=== PATIENT | female | born 1960 | race Caucasian/White ===

== ENCOUNTER 2019-12-09 10:59 | Emergency (ER) | payer MEDICAID, SELFPAY ==
[2019-12-09 11:06] VITALS: BP 119/92; PULSE 110; RESP 17; TEMP 36.8; O2SAT 99; BMI 17.2
[2019-12-09 11:24] VITALS: BP 119/91; PULSE 110; RESP 17; TEMP 36.8; O2SAT 99; BMI 17.0
--- NOTE | 2019-12-09 11:54 | HMH.EDUTC ---
[facility] – [place], [place] Disposition Clinical Impression: Perianal abscess Disposition: Home, Self-Care Condition on Discharge: Good Instructions: Boil Additional Instructions: Follow up with the surgeon if you are not getting better within a 48 to 72 hours. Take the medications as directed. Sit in a bath tub full of warm salt water or do a sitz bath three or four times per day. Follow up with your primary care physician. GO TO THE ER FOR ANY WORSENING SYMPTOMS OR CONCERNS Prescriptions: Mupirocin [Bactroban 2% Ointment 22gm tube] 1 applicatio TP TID 7 Days #1 tube Transmission Status: Received by [id number] Ciprofloxacin HCl [Cipro 500mg Tab] 500 mg PO BID 10 Days #20 tab Transmission Status: Received by [id number] metroNIDAZOLE [metroNIDAZOLE 500mg Tablet] 500 mg PO DAILY 10 Days #20 tab Transmission [facility]: [id number] Referrals: PCP,No [Primary Care Provider] - Tripp Umanzor MD [Staff Physician] - Time of Disposition: 12:29 Medical Decision Making - Medical Records Medical records reviewed: No: I reviewed the patient's medical records. - Jose E Inquiry Pt receiving controlled substance: No Vital Signs: 12/09/19 11:06 12/09/19 11:24 12/09/19 12:29 Temperature 98.2 F 98.2 F 98.2 F Temperature Source Oral Oral Pulse Rate 110 H Pulse Rate [Right] 110 H 110 H Respiratory Rate 17 17 17 Blood Pressure 119/91 H Blood Pressure [Right Arm] 119/92 H 119/91 H Blood Pressure Mean [Right Arm] 101 100 Blood Pressure Source [Right Arm] Automatic Cuff Blood Pressure Position [Right Arm] Sitting 02 Sat by Pulse Oximetry 99 99 Oxygen Delivery Method Room Air Orders (Tests/Meds): ED MEDICATIONS Discontinued Medications Generic Name Dose Route Start Last Admin Trade Name Freq PRN Reason Stop Dose Admin Ceftriaxone Sodium 1 gm 12/09/19 12:21 12/09/19 12:35 Ceftriaxone 1gm Vial IM 12/09/19 12:22 1 gm ONCE ONE Administration Protocol Lidocaine HCl 0 ml 12/09/19 12:21 12/09/19 12:35 Lidocaine 1% 5ml Pf Vial IM 12/09/19 12:22 2.1 ml ONCE ONE Administration [facility] – [place], [place] HPI - General Stated complaint: boil on buttocks Time Seen by Provider: 12/09/19 11:20 Mode of Arrival: Ambulatory Source of Information: Patient Limitations: No Limitations Description of Symptoms (Recalled from Triage Doc. by RN): PATIENT C/O PAINFUL BOIL TO LABIA X 1.5 WEEKS HEENT Symptoms (Recalled from RN notes): No Resp Symptoms (Recalled from RN notes): No Skin Symptoms (Recalled from RN notes): No MS Symptoms (Recalled from RN notes): No Functional Status (Recalled from RN notes): WNL - History of Present Illness Provider Complaint: She c/o having a boil on her bottom for the past 5 days. - Related Data Previous Rx's Medication Instructions Recorded Ciprofloxacin HCl [Cipro 500mg 500 mg PO BID 10 Days #20 tab 12/09/19 Tab] Mupirocin [Bactroban 2% Ointment 1 applicatio TP TID 7 Days #1 tube 12/09/19 22gm tube] metroNIDAZOLE [metroNIDAZOLE 500mg 500 mg PO DAILY 10 Days #20 tab 12/09/19 Tablet] Allergies Allergy/AdvReac Type Severity Reaction Status Date / Time codeine [CODEINE] Allergy Mild Verified 12/09/19 11:28 IV DYE Allergy Mild Uncoded 02/21/17 14:29 - Worker's Comp Is this a Worker's Comp case?: No [facility] History - Hepatitis A Screen Drug use history?: No High risk sexual behaviors?: No History of sexually transmitted infection?: No Currently employed?: No Childcare worker?: No Do you have indoor plumbing?: Yes Do you have electricity?: Yes Attestation statement:: This patient has been screened for Hepatitis A risk factors. I have reviewed the patient's past medical history: Yes - Social History Alcohol Intake: never Occupational Status: other ROS Obtained: Yes All systems reviewed & no additional complaints - Constitutional Constitutional: Denies chills, Denies feve
[2019-12-09 12:29] VITALS: BP 119/91; PULSE 110; RESP 17; TEMP 36.8; O2SAT 99
== END 2019-12-09 12:30 | disposition home or self-care (01) ==
PROVIDERS: Emergency Provider Nurse Practitioner Family
DX: K61.0 Anal abscess (principal); Z88.5 Allergy status to narcotic agent
CPT/HCPCS: 96372; 99201

== ENCOUNTER 2024-06-13 13:48 | Emergency (ER) | payer SELFPAY ==
--- NOTE | 2024-06-13 13:54 | ECG_ITS ---
APPROVED REPORT Exam: Resting ECG HR:93 bpm ECG Measurements Heart Rate 93 AXES CO 129 P 66 QRSd 81 QRS 65 QT 361 T 60 QTc 412 Conclusion SINUS RHYTHM POSSIBLE LEFT ATRIAL ENLARGEMENT [-0.1mV P-WAVE IN V1/V2] POSSIBLE LEFT VENTRICULAR HYPERTROPHY [VOLTAGE CRITERIA PLUS LAE OR QRS WIDENING] NONSPECIFIC ST & T-WAVE ABNORMALITY ABNORMAL ECG Electronically signed by : BREA CABRAL, 06/14/2024 07:37:54
[2024-06-13 13:56] VITALS: BP 134/91; PULSE 90; RESP 24; TEMP 36.7; O2SAT 94; BMI 19.5
--- NOTE | 2024-06-13 14:06 | PC.NURSE ---
Patients FSBS was 133
--- NOTE | 2024-06-13 14:18 | XR_ITS ---
FINAL REPORT CLINICAL HISTORY: syncope COMPARISON: none FINDINGS: No acute pulmonary opacity is present. There is no evidence of effusion or pneumothorax. Mediastinum is unremarkable. Heart size is normal. IMPRESSION: No acute abnormality. Reviewed, Interpreted and Dictated by Rani Doran MD Transcribed by Isabell Camejo Authenticated and . [facility]
--- NOTE | 2024-06-13 14:18 | PC.NURSE ---
patient is very short tempered with staff and refused a flu swab and held up her hands and yelled no
--- NOTE | 2024-06-13 14:19 | HMH.EDGENADL ---
Discharge Plan Disposition Patient Disposition: Home, Self-Care Chief Complaint: Syncope Prescriptions Prescriptions: New doxycycline hyclate 100 mg capsule 100 mg PO BID 5 Days Qty: 10 0RF No Action ciprofloxacin HCl 500 MG tablet 500 mg PO BID 10 Days Qty: 20 0RF metronidazole 500 MG tablet 500 mg PO DAILY 10 Days Qty: 20 0RF mupirocin 22 GM ointment 1 applicatio TP TID 7 Days Qty: 1 0RF Referrals Follow up/Referrals: Provider,Referral, MD [Primary Care Provider] - See instructions Activity Restrictions/Add. Instructions Additional Instructions/Restrictions: Call your family doctor to establish care for this visit to the emergency department and schedule follow-up within 48 hours to ensure improvement. If you have any worsening of your condition or any other concerning signs or symptoms, return to the emergency department or your primary care doctor for further evaluation. While taking doxycycline, limit sunlight exposure. It can cause severe sunburns even if you do not typically get sunburn. Be sure to wear hats, long sleeves, sunscreen if you are out in the sun for prolonged periods of time while taking doxycycline. Clinical Impressions Clinical Impression: Pneumonia, Syncope, Hypokalemia Instructions Patient Instructions: DI for Syncope in Adults (Fainting), DI for Syncope in Children (Fainting) Print Language Print Language: Armenian Discharge ED Provider: Du Knight General Adult HPI <David Taylor MD - Last Filed: 06/13/24 15:43> General Chief complaint: Syncope Stated complaint: Syncopy Time Seen by Provider: 06/13/24 13:55 Mode of Arrival: Ambulatory Source of Information: Patient Description of Symptoms (Recalled from ER Triage Doc. by RN): pt was shopping at [email or web address] a lot and got dizzy and passed out, family caught her and lowered her to the ground, no injury occurred and then patient woke up and puked. pt is alox4 and back to baseline, upon triage pt states she hurts all over like body aches and bad back pain, pt refused a flu swab, and then per family she has not been feeling well for two weeks History of Present Illness HPI narrative: Patient is a 63-year-old female with no pertinent past medical history presents emergency department for evaluation of passing out. Patient has passed out multiple times before but it does not have often with a frequency of less than annually. She feels it coming on when she passes out today she felt as if she was going to pass out and tried to make it to the bathroom but was unsuccessful. Family noticed that she was going down and caught her and lowered her to the floor. No trauma. Rapid return to baseline. She presents here by EMS. No chest pain, no headache reported, no other acute complaints at this time. Please note that above description of symptoms, in this electronic medical record under categorization of recalled from ER triage doctor by RN are reflective of an initial nursing assessment, however, is not reflective of my full history and physical exam that was personally taken and clarified. Consequentially, this preceding description of symptoms, which may include the patient's categorized chief complaint in the EMR, do not reflect my personal clinical impression, and the ultimate description of history of present illness and patient stated complaints should be deferred to this section of the note. Unless stated otherwise or congruent with this section of the note, additional signs, symptoms, or incongruence should be interpreted as inaccurate with my clinical impression. Related Data Previous Rx's ?Medication ?Instructions ?Recorded ciprofloxacin HCl 500 mg tablet 500 mg PO BID 10 days #20 tabs 12/09/19 metronidazole 500 mg tablet 500 mg PO DAILY 10 days #20 tabs 12/09/19 mupirocin 2 % topical ointment 1 applicatio TP TID 7 days #1 tube 12/09/19 doxycycline hyclate 100 mg capsule 100 mg PO BID 5 days #10 caps 06/13/24 Allergies Allergy/AdvReac Type Severity Reaction Status Date / Time codeine (CODEINE) Allergy Mild Verified 12/09/19 11:28 IV DYE Allergy Mild Uncoded 02/21/17 14:29 [facility] <David Taylor MD - Last Filed: 06/13/24 15:43> [facility] Disclaimer: The information contained in this section may have been updated after the patient was seen, as this information can be updated by other users. Social History Smoking Status: Current every day smoker alcohol intake: never current occupational status: other Travel in the last 8 weeks: None Have you lived/traveled outside [place] in past 30 days?: No Contact w/someone who lives/traveled outside US past 30 days?: No Exposure to someone with infectious disease in past 14 days?: No Do you have a fever (greater than 100.4 F or 38 C)?: No Have you tested positive for COVID-19: No Exposed to someone with COVID-19 in past 14 days?: No Do you have a sore throat?: No Do you have a cough?: No Do you have any weakness?: No Do you have any diarrhea?: No Are you experiencing any unusual bleeding?: No Do you have any muscle aches/pain?: No Do you have any abdominal pain?: No Are you experiencing loss of taste or smell?: No <David Taylor MD - Last Filed: 06/13/24 15:43> ROS Obtained: Yes Systems reviewed as appropriate & no additional complaints except as documented Physical Exam <David Taylor MD - Last Filed: 06/13/24 15:43> General General appearance: alert and in no apparent distress Head Head exam: atraumatic and normocephalic Eye Eye exam: Present PERRL and EOMI ENT ENT exam: Present mucous membranes moist Neck Neck exam: Present normal inspection Chest Chest inspection: Present normal inspection and symmetric chest wall rise Respiratory Respiratory exam: Present normal lung sounds bilaterally; Absent respiratory distress Cardiovascular Cardiovascular exam: Present regular rate and normal rhythm Abdominal Exam Abdominal exam: Present soft; Absent tenderness Extremities Exam Extremities exam: Present normal inspection Neurological Exam Neurological exam: Present alert, oriented X3 and CN II-XII intact; Absent motor sensory deficit Psychiatric Psychiatric exam: Present normal affect Skin Skin exam: Present warm and dry Medical Decision Making <David Taylor MD - Last Filed: 06/13/24 15:43> Medical Records Screening: Per USPSTF and CDC recommendations, given the prevalence of disease in our region, it is our hospital?s policy to screen for HIV and viral Hepatitis for all patients aged 18 and over and those with ongoing risk factors. Jose E Inquiry Pt receiving controlled substance: No Vital Signs: 06/13/24 13:56 Temperature 98.0 F Temperature Source Oral Pulse Rate [Left Radial] 90 Respiratory Rate 24 Blood Pressure [Right Arm] 134/91 H Blood Pressure Mean [Right Arm] 105 02 Sat by Pulse Oximetry 94 L Oxygen Delivery Method Room Air Lab Data Lab Results 06/13/24 13:56: WBC 20.8 H*, RBC 4.63, Hgb 13.7, Hct 41.9, MCV 90.5, MCH 29.6, MCHC 32.7, RDW 14.4, Plt Count 356, MPV 10.0, Neut % (Auto) 71.7, Lymph % (Auto) 19.0, [place] % (Auto) 7.3, Eos % (Auto) 0.9, Baso % (Auto) 0.7, Neut # (Auto) 14.9 H, Lymph # (Auto) 3.9, [place] # (Auto) 1.5 H, Eos # (Auto) 0.2, Baso # (Auto) 0.2, Sodium 138, Potassium 3.3 L, Chloride 103, Carbon Dioxide 24, Anion Gap 14.3, BUN 9, Creatinine 0.60, Estimated Creat Clear 46, Estimated GFR 101, Est GFR ( Amer) 123, Glucose 155 H, Calcium 9.3, Magnesium 1.6, Total Bilirubin 0.5, AST 23, ALT 12, Alkaline Phosphatase 112, Total Protein 7.2, Albumin 3.6, Globulin 3.6 H, Albumin/Globulin Ratio 1.0 L 06/13/24 13:56 06/13/24 13:56 Orders (Tests/Meds): ED MEDICATIONS Discontinued Medications Generic Name Dose Route Start Last Admin Trade Name Freq PRN Reason Stop Dose Admin Doxycycline Hyclate 100 mg 06/13/24 15:38 06/13/24 15:41 Doxycycline Hycl 100 Mg Tablet PO 06/13/24 15:39 100 mg ONCE ONE Administration Potassium Chloride 40 meq 06/13/24 15:46 06/13/24 15:53 Potassium Chloride 20meq Tab PO 06/13/24 15:47 40 meq ONCE ONE Administration Prednisone 40 mg 06/13/24 15:37 06/13/24 15:41 Prednisone 20mg Tab PO 06/13/24 15:38 40 mg ONCE ONE Administration ORDERS Category Date Time Status CXR --portable [XR chest portable] Stat Exams 06/13/24 14:18 Completed CBC w/Auto Diff [Complete Blood Count Auto Diff] Stat Lab 06/13/24 13:56 Results CMP [Comprehensive Metabolic Panel] Stat Lab 06/13/24 13:56 Completed MG [Magnesium] Stat Lab 06/13/24 13:56 Completed ECG Data Tracing #1: Independently interpreted by me rate is 93, rhythm is regular, axis is normal, no ST elevation in anatomical contiguous leads, QTc 412, no dagger Q waves in the lateral leads no high degree AV block no delta wave. Medical Decision Narrative: In summary patient is 63-year-old female past medical history described above presents emergency department for evaluation of syncope. Patient is hemodynamically stable nontoxic-appearing upon arrival, afebrile. Patient has a nonfocal neurologic exam. History is consistent with vasovagal syncope, there was prodrome as well. Workup we conducted with hematologic labs chest x-ray EKG. initial hematologic labs reviewed by me leukocytosis of 20.8 of undetermined etiology, mild hypokalemia, no MARIANELA or critical electrolyte abnormality otherwise. Chest x-ray informally interpreted by me, right lower lobe pneumonia which we will start treatment with prednisone and doxycycline. On further questioning patient has had cough, upper respiratory symptoms, back pain from coughing, I considered CT angio of the chest abdomen pelvis but given that she does not have any anterior chest pain or abdominal pain we will not proceed with this given her contrast allergy and I do think it is very unlikely. Repeat evaluation pending at time of transfer of care to the oncoming physician, Dr. Knight. <Du Knight MD - Last Filed: 06/13/24 16:04> Vital Signs: 06/13/24 13:56 Temperature 98.0 F Temperature Source Oral Pulse Rate [Left Radial] 90 Respiratory Rate 24 Blood Pressure [Right Arm] 134/91 H Blood Pressure Mean [Right Arm] 105 02 Sat by Pulse Oximetry 94 L Oxygen Delivery Method Room Air Lab Data Lab Results 06/13/24 13:56: WBC 20.8 H*, RBC 4.63, Hgb 13.7, Hct 41.9, MCV 90.5, MCH 29.6, MCHC 32.7, RDW 14.4, Plt Count 356, MPV 10.0, Neut % (Auto) 71.7, Lymph % (Auto) 19.0, [place] % (Auto) 7.3, Eos % (Auto) 0.9, Baso % (Auto) 0.7, Neut # (Auto) 14.9 H, Lymph # (Auto) 3.9, [place] # (Auto) 1.5 H, Eos # (Auto) 0.2, Baso # (Auto) 0.2, Sodium 138, Potassium 3.3 L, Chloride 103, Carbon Dioxide 24, Anion Gap 14.3, BUN 9, Creatinine 0.60, Estimated Creat Clear 46, Estimated GFR 101, Est GFR ( Amer) 123, Glucose 155 H, Calcium 9.3, Magnesium 1.6, Total Bilirubin 0.5, AST 23, ALT 12, Alkaline Phosphatase 112, Total Protein 7.2, Albumin 3.6, Globulin 3.6 H, Albumin/Globulin Ratio 1.0 L Orders (Tests/Meds): ED MEDICATIONS Discontinued Medications Generic Name Dose Route Start Last Admin Trade Name Freq PRN Reason Stop Dose Admin Doxycycline Hyclate 100 mg 06/13/24 15:38 06/13/24 15:41 Doxycycline Hycl 100 Mg Tablet PO 06/13/24 15:39 100 mg ONCE ONE Administration Potassium Chloride 40 meq 06/13/24 15:46 06/13/24 15:53 Potassium Chloride 20meq Tab PO 06/13/24 15:47 40 meq ONCE ONE Administration Prednisone 40 mg 06/13/24 15:37 06/13/24 15:41 Prednisone 20mg Tab PO 06/13/24 15:38 40 mg ONCE ONE Administration ORDERS Category Date Time Status CXR --portable [XR chest portable] Stat Exams 06/13/24 14:18 Completed CBC w/Auto Diff [Complete Blood Count Auto Diff] Stat Lab 06/13/24 13:56 Results CMP [Comprehensive Metabolic Panel] Stat Lab 06/13/24 13:56 Completed MG [Magnesium] Stat Lab 06/13/24 13:56 Completed Medical Decision Narrative: In summary patient is 63-year-old female past medical history described above presents emergency department for evaluation of syncope. Patient is hemodynamically stable nontoxic-appearing upon arrival, afebrile. Patient has a nonfocal neurologic exam. History is consistent with vasovagal syncope, there was prodrome as well. Workup we conducted with hematologic labs chest x-ray EKG. initial hematologic labs reviewed by me leukocytosis of 20.8 of undetermined etiology, mild hypokalemia, no MARIANELA or critical electrolyte abnormality otherwise. Chest x-ray informally interpreted by me, right lower lobe pneumonia which we will start treatment with prednisone and doxycycline. On further questioning patient has had cough, upper respiratory symptoms, back pain from coughing, I considered CT angio of the chest abdomen pelvis but given that she does not have any anterior chest pain or abdominal pain we will not proceed with this given her contrast allergy and I do think it is very unlikely. Repeat evaluation pending at time of transfer of care to the oncoming physician, Dr. Knight. Eugene: I assumed primary responsibility for this patient after signout from previous physician. I independently interpreted patient's workup, she does have leukocytosis nearly 21,000 with neutrophilia and elevated monocytes. Mild hypokalemia. Chest x-ray with right basilar opacities consistent with pneumonia. Patient was given potassium and doxycycline. Clinically well, requesting to go home on reevaluation. Ambulated and tolerated p.o. intake without issue. Because patient at baseline without signs or symptoms of clinical decompensation, deemed appropriate for discharge. Results were relayed to patient who voiced understanding and were agreeable to outpatient management and follow up. I discussed my clinical impression with patient and answered all questions. At this time, the evidence for any other entities in the differential is insufficient to warrant any further testing or ED observation. This was explained as well. Advisory was given that persistent or worsening symptoms require further evaluation. I confirmed the understanding of this discussion. Critical Care <David Taylor MD - Last Filed: 06/13/24 15:43> Critical Care Time Critical Care Time: No
[2024-06-13 14:23] LABS: Basophils # 0.2 K/mm3 (0-0.2); Basophils % 0.7 % (0.1-2.0); Eosinophils # 0.2 K/mm3 (0.0-0.4); Eosinophils % 0.9 % (0.1-12.0); Hematocrit 41.9 % (37.0-47.0); Hemoglobin 13.7 g/dL (12.2-16.2); Lymphocytes # 3.9 K/mm3 (0.7-4.5); Mean Corpuscular HGB Conc 32.7 g/dL (31.8-35.4); Mean Corpuscular Hemoglobin 29.6 pg (27.0-31.2); Mean Corpuscular Volume 90.5 fl (81-99); Monocytes # 1.5 K/mm3 (0.1-1.0); Monocytes % 7.3 % (1.7-9.3); Neutrophils # 14.9 K/mm3 (1.8-7.8); Neutrophils % 71.7 % (37.0-80.0); Nucleated Red Blood Cells # 0 10^3/uL; Nucleated Red Blood Cells % 0 %; Platelet Count 356 K/mm3 (142-424); Red Blood Count 4.63 M/mm3 (4.20-5.40); Red Cell Distribution Width 14.4 % (11.5-17.5); Red Cell Distribution Width-SD 47.1 fL; White Blood Count 20.8 K/mm3 (4.8-10.8)
[2024-06-13 14:35] LABS: Chloride 103 mmol/L (98-107)
[2024-06-13 14:36] LABS: Albumin Level 3.6 g/dl (3.5-5.0); Potassium 3.3 mmoL/L (3.5-5.1); Sodium 138 mmol/L (136-145)
[2024-06-13 14:38] LABS: Blood Urea Nitrogen 9 mg/dl (7-17); Creatinine Clearance Estimated 46 mL/min (50-200); Estimated Glomerular Filt Rate 101 ml/min (>60); GFR (African American) 123 ML/MIN (>60)
[2024-06-13 14:39] LABS: Alanine Aminotransferase 12 U/L (12-78); Alkaline Phosphatase 112 U/L (38-126); Anion Gap 14.3 mEq/L (5-15); Aspartate Amino Transferase 23 U/L (14-36); Bilirubin,Total 0.5 mg/dl (0.2-1.3); Calcium 9.3 mg/dl (8.4-10.2); Carbon Dioxide 24 mmol/L (22.0-30.0); Globulin 3.6 g/dL (1.3-3.2); Glucose 155 mg/dl (74-100); Magnesium 1.6 mg/dl (1.6-2.3); Total Protein,Serum 7.2 g/dl (6.3-8.2)
[2024-06-13 15:04] LABS: MANUAL DIFFERENTIAL MANUAL DIFFERENTIAL (MANUAL DIFF)
[2024-06-13] MEDS: predniSONE 20MG TAB 40 MG PO (15:41)
[2024-06-13] MEDS: DOXYCYCLINE HYCL 100 MG TABLET PO (15:41)
[2024-06-13] MEDS: POTASSIUM CHLORIDE 20MEQ TAB 40 MEQ PO (15:53)
--- NOTE | 2024-06-13 15:58 | PC.NURSE ---
i ambulated pt. she was able to ambulate independently. tolerated well. no c/o dizziness
[2024-06-13 16:06] VITALS: BP 130/78; PULSE 89; RESP 20; TEMP 36.7; O2SAT 98
[2024-06-13 17:18] LABS: Eosinophils % 1 % (0-3); Lymphocytes % 28 % (10-50); Monocytes % 6 % (2-9); Neutrophils % 63 % (42-76); Platelet Estimate Normal; Total Cells Counted 100
[2024-06-13 17:19] LABS: Poikilocytosis 1+; Target Cells 1+
== END 2024-06-13 16:09 | disposition home or self-care (01) ==
PROVIDERS: Emergency Medicine; Emergency Provider Emergency Medicine
DX: J18.9 Pneumonia, unspecified organism (principal); R55 Syncope and collapse; E87.6 Hypokalemia; R11.10 Vomiting, unspecified; D72.829 Elevated white blood cell count, unspecified
CPT/HCPCS: 99284; 71045; 80053; 83735; 85007; 85025; 85027; 93005